=== PATIENT | female | born 1985 | race African-American/Black ===

== ENCOUNTER 2018-04-22 08:02 | Outpatient (CLI) | payer OTHER ==
--- NOTE | 2018-04-22 12:07 | Ultrasound Report ---
Complete abdominal ultrasound: Abdominal pain. Imaging of the liver, spleen, and pancreas are echogenically unremarkable. There may be minimal gallbladder sludge but the gallbladder is otherwise unremarkable. The CBD diameter is 2.8 mm. The right kidney measures 10.7 cm and the left measures 10 cm in length. Both kidneys are echogenically normal. The transverse diameter of the proximal abdominal aorta is 1.3 cm. The IVC is in normal position. Impression: Minimal gallbladder sludge. No other findings.
--- NOTE | 2018-04-22 12:14 | Ultrasound Report ---
Pelvic ultrasound: Pelvic pain. Transabdominal imaging demonstrates an anteverted uterus measuring 4.3 x 6.0 x 9.8 cm. The myometrium is homogeneous. The endometrial thickness is approximately 10.8 mm. No fluid noted. The left ovary measures 3.7 cm and appears echogenically normal. The right ovary is not identified. No free fluid noted. Impression: Nonvisualized right ovary. Otherwise unremarkable exam.
== END 2018-04-22 08:03 | disposition home or self-care (01) ==
LOC: US 08:02
PROVIDERS: ATTEND Family Medicine
DX: R10.9 Unspecified abdominal pain (principal); R10.2 Pelvic and perineal pain
CPT/HCPCS: 76700; 76856